=== PATIENT | male | born 1955 | race Caucasian/White ===

== ENCOUNTER → 2017-04-11 | Outpatient (CLI) | payer BC | LOC: LAB 14:38 | DX: R71.8 Other abnormality of red blood cells (principal) ==

== ENCOUNTER → 2018-10-13 | Outpatient (CLI) | payer BC ==
[2018-10-13 14:40] LABS: HEMATOCRIT 53.5 % (42.0-52.0); HEMOGLOBIN 16.9 g/dL (13.5-18.0)
[2018-10-13 15:02] LABS: EOS # 0.1 (0.04-0.40); EOS % 1.3 % (0.0-4.0); LYMPH# 1.1 (1.50-4.00); MEAN CELL VOLUME 87 fl (78-100); MEAN CORPUSCULAR HEMOGLOBIN 28 pg (27-31); MEAN CORPUSCULAR HGB CONC 32 g/dL (33-37); MEAN PLATELET VOLUME 10.9 fl (7.4-10.4); MONO # 0.6 (0.20-0.80); NEU # 5.8 (1.40-6.50); PLATELET COUNT 221 K/mm3 (130-400); RED BLOOD COUNT 6.12 M/mm3 (4.20-5.60); RED CELL DISTRIBUTION WIDTH 13.7 % (11.5-14.5); WHITE BLOOD COUNT 7.7 K/mm3 (4.8-10.8)
== END ==
LOC: LAB 14:23
DX: R68.82 Decreased libido (principal); D75.1 Secondary polycythemia; E29.1 Testicular hypofunction